=== PATIENT | female | born 1945 | race Caucasian/White ===

== ENCOUNTER → 2017-04-15 | Outpatient (CLI) | payer MEDICARE, OTHER ==
[~2017-04-15] VITALS: Ht 162.6 cm; Wt 83.0 kg
[~2017-04-15] MED LIST: B COTAB3 PO; BUSP5TA PO; CITA20TA4 PO; CO Q100C10 PO; LIDOCAINE 2% INJ 100 MG/5 ML SDV (FOR ANES.) As Ordered ONE; NS 1,000 ML IV ONE; OMEG100011 PO; PROPOFOL 200 MG/20 ML VIAL As Ordered ONE; VITA-121 PO
--- NOTE | 2017-04-15 08:28 | ROOR ---
Patient Name: Fabiana Melara Procedure Date: 04/15/2017 8:01 AM Date of : 1945 Age: 71 Room: [facility] Gender: Female Note Status: Finalized Procedure: Colonoscopy Indications: Screening for colorectal malignant neoplasm Providers: Sagar YOUNG MD Referring MD: HANY CARLOS NP Requesting Provider: Medicines: Monitored Anesthesia Care Complications: No immediate complications. Procedure: Pre-Anesthesia Assessment: - The heart rate, respiratory rate, oxygen saturations, blood pressure, adequacy of pulmonary ventilation, and response to care were monitored throughout the procedure. The Colonoscope was introduced through the anus and advanced to the cecum, identified by appendiceal orifice and ileocecal valve. The colonoscopy was performed without difficulty. The patient tolerated the procedure well. The quality of the bowel preparation was good. Findings: The perianal and digital rectal examinations were normal. A 4 mm polyp was found in the sigmoid colon. The polyp was sessile. The polyp was removed with a cold snare. Resection and retrieval were complete. Internal hemorrhoids were found during retroflexion. The hemorrhoids were medium-sized. The exam was otherwise without abnormality on direct and retroflexion views. A single small angioectasia without bleeding was found in the cecum. Impression: - One 4 mm polyp in the sigmoid colon, removed with a cold snare. Resected and retrieved. - Internal hemorrhoids. - The examination was otherwise normal on direct and retroflexion views. Recommendation: - Repeat colonoscopy in 5 years for surveillance. Sagar Young MD Sagar YOUNG MD 04/15/2017 8:28:37 AM This report has been signed electronically. Number of Addenda: 0 Note Initiated On: 04/15/2017 8:01 AM Estimated Blood Loss: Estimated blood loss: none.
[2017-04-15 08:59] VITALS: BP 120/76
== END | disposition home or self-care (01) ==
LOC: M OPP 07:28
PROVIDERS: ATTEND Internal Medicine Gastroenterology
DX: Z12.11 Encounter for screening for malignant neoplasm of colon (principal); D12.5 Benign neoplasm of sigmoid colon; K64.8 Other hemorrhoids; E78.5 Hyperlipidemia, unspecified; R12 Heartburn; M89.9 Disorder of bone, unspecified; F32.9 Major depressive disorder, single episode, unspecified; Z78.0 Asymptomatic menopausal state; Z87.442 Personal history of urinary calculi; R06.83 Snoring; Z87.891 Personal history of nicotine dependence; Z79.899 Other long term (current) drug therapy; Z80.3 Family history of malignant neoplasm of breast

== ENCOUNTER 2017-06-08 12:51 | Observation (INO) | payer MEDICARE, OTHER ==
[~2017-06-08] VITALS: Ht 162.6 cm; Wt 85.6 kg
[~2017-06-08 12:51] MED LIST changes: -B COTAB3 PO; -BUSP5TA PO; -CO Q100C10 PO; -LIDOCAINE 2% INJ 100 MG/5 ML SDV (FOR ANES.) As Ordered ONE; -NS 1,000 ML IV ONE; -OMEG100011 PO; -PROPOFOL 200 MG/20 ML VIAL As Ordered ONE; -VITA-121 PO
[2017-06-08] MEDS ORDERED: BUSP5TA PO (13:02)
[2017-06-08] MEDS ORDERED: ASPIRIN 81 MG CHEW TABLET PO ONE (13:45)
--- NOTE | 2017-06-08 13:45 | REP ---
Clinical: Left-sided chest pain . Comparison: 05/25/2013 . Technique: PA and lateral. Findings: The mediastinum and cardiac silhouette are normal. The lung russell are clear and without acute consolidation, effusion, or pneumothorax. The skeletal structures are intact and normal. Impression: 1. No acute cardiopulmonary process. Signed by Ricky Canales MD 06/08/2017 01:37 P
[2017-06-08 13:53] LABS: BASO % 0.5 % (0.0-1.0); EOS # 0.2 K/mm3 (0.0-0.50); EOS % 3.2 % (0.0-3.0); LARGE UNSTAINED CELL # 0.1 K/mm3 (0.0-0.4); LARGE UNSTAINED CELL % 1.2 % (0.0-4.0); LYMPH # 1.7 K/mm3 (1.5-4.5); LYMPH % 29.8 % (24.0-44.0); MEAN CORPUSCULAR HEMOGLOBIN 30.2 pg (27.0-33.0); MEAN CORPUSCULAR VOLUME 91.4 fl (80.0-96.0); MONO # 0.3 K/mm3 (0.0-0.8); MONO % 4.4 % (0.0-5.0); NEUTROPHILS # 3.5 K/mm3 (1.8-7.7); NEUTROPHILS % 60.9 % (36.0-66.0); PLATELET COUNT, AUTOMATED 217 k/mm3 (150-450); RED CELL DISTRIBUTION WIDTH 13.7 % (11.5-14.5); WHITE BLOOD COUNT 5.7 K/mm3 (4.0-10.0)
[2017-06-08 14:18] LABS: ALBUMIN 3.5 GM/DL (3.2-5.2); ALKALINE PHOSPHATASE 68 U/L (45-117); ALT/SGPT 27 U/L (12-78); ANION GAP 4 MEQ/L (8-16); AST/SGOT 16 U/L (15-37); BILIRUBIN,DIRECT < 0.1 MG/DL (0.0-0.2); BILIRUBIN,TOTAL 0.4 MG/DL (0.2-1.0); BLOOD UREA NITROGEN 12 MG/DL (7-18); CALCIUM LEVEL 8.9 MG/DL (8.8-10.2); CARBON DIOXIDE LEVEL 33 MEQ/L (21-32); CHLORIDE LEVEL 107 MEQ/L (98-107); CREATININE FOR GFR 0.87 MG/DL (0.55-1.02); FREE T4 0.84 NG/DL (0.76-1.46); GLOMERULAR FILTRATION RATE > 60.0 (>39); GLUCOSE, FASTING 93 MG/DL (83-110); POTASSIUM SERUM 4.2 MEQ/L (3.5-5.1); SODIUM LEVEL 144 MEQ/L (136-145); TOTAL PROTEIN 6.2 GM/DL (6.4-8.2)
[2017-06-08] MEDS ORDERED: ISOVUE-370 76% 100ML VIAL (Q9967) As Ordered ONE (14:49)
--- NOTE | 2017-06-08 15:39 | REP ---
Clinical: Chest pain . Technique: Axial contrast enhanced images from the thoracic inlet to the upper abdomen using 100 ml Isovue 370 intravenous contrast material with multiplanar re-formations. Findings: Satisfactory enhancement of the pulmonary vasculature is achieved and no filling defects are identified to suggest pulmonary embolus. Further evaluation of the mediastinum demonstrates normal thoracic aorta, heart and pericardium. The bilateral lung russell demonstrate chronic age-related interstitial changes without consolidation, pleural effusion or pneumothorax. Tracheobronchial tree is patent. No nodule or mass lesion is identified. No adenopathy noted. Surrounding musculoskeletal structures intact Impression: No evidence for pulmonary embolus. No acute mediastinal or pleural parenchymal process. Signed by Ricky Canales MD 06/08/2017 03:31 P
[2017-06-08] MEDS ORDERED: B COTAB3 PO (17:16)
[2017-06-08] MEDS ORDERED: CO Q100C10 PO (17:16)
[2017-06-08] MEDS ORDERED: OMEG100011 PO (17:16)
[2017-06-08] MEDS ORDERED: VITA-121 PO (17:16)
--- NOTE | 2017-06-08 17:35 | HPEPDOC ---
General Date of Admission Jun 08, 2017 at 16:56 Primary Care Physician: Jeni Carvalho Attending Physician: FLOR GIVENS MD Chief Complaint The patient is a 71-year-old female admitted with a reason for visit of Near Syncope. Source: Patient, RN notes reviewed, Old records Exam Limitations: No limitations Associated Symptoms: Weakness, Dizziness History of Present Illness Ms. Melara is a 71-year-old female who presents to [facility]'s Emergency Department with near-syncope. She is accompanied by her daughter and and later joined by her son and [id number]. Past medical history is significant for depression, allergies, chronic low back pain, history of hyperplastic polyp, and history of tubular adenoma. Patient reports that they have recently renovated their kitchen and have been entertaining company when on she became quite lightheaded. She states that this lasted for hours. She reports preparing breakfast for everyone, but not having any desire to consume anything to eat herself. However, she does report having an appetite for later meals. She admits to decreased energy. She reports feeling exhausted. She took an aspirin and one of her 's buspar. She felt better later in the day. On Saturday the patient continued to feel lightheaded and fatigued. She again took two more aspirin. On Saturday, day of presentation to the hospital, she reports worsening lightheadedness and left shoulder blade pressure. She describes the pressure as light. No recalled incident to explain shoulder blade pain, per patient. Patient reports having a prior EKGs done in her PCP office without receiving a reported abnormality. She has also had a nuclear stress test done several years ago, but does not recall any abnormalities reported at that time. The only medication she takes is citalopram, which she reports that she does not take consistently. Denies a history of hypertension, cardiac surgery, COPD, heart failure. Denies chest pressure, chest pain, radiating left arm pain, jaw pain, searing pain on her face or jaw line, vision changes (blurry vision, loss of vision, diplopia), loss of hearing, tinnitus, diaphoresis, dysphagia, nausea, vomiting, abdominal pain, back pain. She denies falling. Hospitalist service was consulted and patient was admitted for observation. Home Medications Scheduled (B Complex) 1 Tab Tab, 1 TAB PO DAILY, (Reported) (Co Q 10) 100 Mg Cap, 100 MG PO DAILY, (Reported) Cholecalciferol (Vitamin D-3) 1,000 Unit Tab, 1,000 UNIT PO DAILY, (Reported) Citalopram Hydrobromide (Citalopram Hydrobromide) 20 Mg Tab, 20 MG PO DAILY, ( Reported) [place] 3 Polyunsat Fatty Acids ([place] 3 1000 mg) 1 Cap Cap, 1 CAP PO DAILY, ( Reported) Scheduled PRN Buspirone HCl (Buspirone HCl) 5 Mg Tab, 0 PO PRN PRN for ANXIETY/AGITATION, ( Reported) Allergies Coded Allergies: Cat Dander (Verified Allergy, Unknown, 04/10/17) Past Medical History Medical History 1. Depression 2. Allergies 3. Chronic low back pain 4. History of hyperplastic polyp 5. History of tubular adenoma Surgical History 1. Colonoscopy 2. 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 Occasional glass of wine Denies tobacco Denies illicit drug use Admits to travel history, domestic and international Denies exposures No pets in the home Review of Symptoms Constitutional: Reports: Fatigue, Denies: Chills, Fever, Night Sweats, Weight Loss Eyes: Denies: Pain, Vision change, Conjunctivae inflammation, Eyelid inflammation, Redness ENT: Denies: Head Aches, Ear Pain, Dysphagia, Sinus Congestion, Post Nasal Drip , Sore Throat, Epistaxis Skin: Denies: Rash, Lesions, Bruising Pulmonary: Denies: Dyspnea, Cough, Pleuritic Chest Pain Cardiovascular: Reports: Lt Headedness, Denies: Chest Pain, Palpitations, Orthopnea, Paroxysmal Noc. Dyspnea, Edema Gastrointestinal: Denies: Nausea, Vomiting, Abdominal Pain, Diarrhea, Constipation, Melena, Hematochezia Genitourinary: Denies: Dysuria, Frequency, Incontinence, Hematuria Hematologic: Denies: Bruising, Bleeding Excessively, Petecchia, Purpura Endocrine: Denies: Polydipsia, Polyphagia, Polyuria Musculoskeletal: Reports: Shoulder Pain (left scapula), Denies: Neck Pain, Back Pain, Joint Pain, Muscle Pain Neurological: Reports: Weakness, Denies: Numbness Physical Examination General Exam: Positive: Alert, Cooperative, No Acute Distress Eye Exam: Positive: PERRLA, Conjunctiva & lids normal, EOMI, Negative: Sclera icteric, Ptosis ENT Exam: Positive: Atraumatic, Mucous membr. moist/pink, Pharynx Normal, Tongue Midline, Nares Patent, Negative: Pharyngeal Edema Neck Exam: Positive: Supple, +2 carotid pulse wo bruit, Negative: JVD, thyromegaly, Lymphadenopathy Chest Exam: Positive: Clear to auscultation, Normal air movement, Negative: Rales, Rhonchi, Wheezing Heart Exam: Positive: Rate Normal, Regular Rhythm, Normal S1, Normal S2, Negative: Gallops, Murmurs, Rubs Telemetry: Positive: Sinus Abdomen Exam: Positive: Normal bowel sounds, Soft, Negative: Tenderness, Hepatospenomegaly, Mass, Hernia Extremity Exam: Positive: Normal pulses, Negative: Clubbing, Cyanosis, Edema, Tenderness, Swelling Skin Exam: Negative: Rash, Lesion Neuro Exam: Positive: Normal Speech, Strength at 5/5 X4 ext, Cranial Nerves 3- 12 NL Other physical findings Chest x-ray, PA and lateral IMPRESSION: 1. No acute cardiopulmonary process. CT angiography IMPRESSION: No evidence for pulmonary embolus. No acute mediastinal or pleural parenchymal process. Vital Signs Vital Signs Date Time Temp Pulse Resp B/P (MAP) Pulse Ox O2 Delivery O2 Flow Rate FiO2 06/08/17 15:15 60 17 125/62 (83) 94 Room Air 06/08/17 12:52 98.5 Height (in): 64 Weight (kg): 83.64 BMI (kg): 31.7 Laboratory Data Labs 24H Laboratory Tests 2 06/08/17 13:41: White Blood Count 5.7, Red Blood Count 5.24, Hemoglobin 15.8, Hematocrit 47.9H, Mean Corpuscular Volume 91.4, Mean Corpuscular Hemoglobin 30.2, Mean Corpuscular Hemoglobin Concent 33.0, Red Cell Distribution Width 13.7, Platelet Count 217, Neutrophils (%) (Auto) 60.9, Lymphocytes (%) (Auto) 29.8, Monocytes ( %) (Auto) 4.4, Eosinophils (%) (Auto) 3.2H, Basophils (%) (Auto) 0.5, Neutrophils # (Auto) 3.5, Lymphocytes # (Auto) 1.7, Monocytes # (Auto) 0.3, Eosinophils # (Auto) 0.2, Basophils # (Auto) 0.0, Large Unclassified Cells % 1.2 , Large Unclassified Cells # 0.1, Anion Gap 4L, Glomerular Filtration Rate > 60.0, Calcium Level 8.9, Aspartate Amino Transf (AST/SGOT) 16, Alanine Aminotransferase (ALT/SGPT) 27, Alkaline Phosphatase 68, Total Bilirubin 0.4, Direct Bilirubin < 0.1, Total Creatine Kinase 72, Creatine Kinase MB 1.2, Creatine Kinase MB Relative Index 1.66, Troponin I < 0.02, B-Type Natriuretic Peptide 120H, Total Protein 6.2L, Albumin 3.5, Albumin/Globulin Ratio 1.30, Thyroid Stimulating Hormone (TSH) 3.090, Free Thyroxine 0.84 CBC/BMP Laboratory Tests 06/08/17 13:41 Red Blood Count 5.24, Mean Corpuscular Volume 91.4, Mean Corpuscular Hemoglobin 30.2, Mean Corpuscular Hemoglobin Concent 33.0, Red Cell Distribution Width 13.7 , Neutrophils (%) (Auto) 60.9, Lymphocytes (%) (Auto) 29.8, Monocytes (%) (Auto ) 4.4, Eosinophils (%) (Auto) 3.2 H, Basophils (%) (Auto) 0.5, Neutrophils # ( Auto) 3.5, Lymphocytes # (Auto) 1.7, Monocytes # (Auto) 0.3, Eosinophils # (Auto ) 0.2, Basophils # (Auto) 0.0 RAD Interpretation STUDY: CXR Rad Actions: Report Reviewed RAD Interpretation: Normal Assessment/Plan This is a 71-year-old female with a past medical history significant for depression, allergies, chronic low back pain, history of hyperplastic polyp , and history of tubular adenoma who presents with near-syncope, likely over- exertional. R/O cardiac etiology. Risk stratification is low. Plan / VTE VTE Prophylaxis Ordered?: Yes (TEDs, sequentials, knee high compression, heparin 5,000 units SC every 8 hours) Plan Plan Near-syncope R/O cardiac etiology. More likely over-exertional based on HPI. Admit to the PCU for telemetry monitoring. Obtain orthostatic VS. Trend cardiac markers. Stratify risk with lipid panel. Obtain hemoglobin A1c. Aspirin given in the emergency department. Obtain carotid U/S. Depression Continue patient on home medication of citalopram. Disposition Admit: Progressive care unit Anticipated hospitalization: Observation Attending: Dr. Gregory Diet: Continue Current (regular) Activity: Encourage Ambulation Diagnostics: Check Labs, Repeat Labs in AM Anticipated Discharge: Home EDSON FERMIN Jun 08, 2017 17:35
[2017-06-08 17:43] LABS: CHOLESTEROL LEVEL 238 MG/DL (<200); MAGNESIUM LEVEL 2.2 MG/DL (1.8-2.4); TRIGLYCERIDES LEVEL 108 MG/DL (<150)
[2017-06-08] MEDS ORDERED: busPIRone 5 MG TAB PO PRN (17:45)
[2017-06-08 18:47] VITALS: BP 156/67
[2017-06-08 20:00] VITALS: BP_SYST 128; BP_SYST 133; BP_SYST 137; BP_DIAS 72; BP_DIAS 75; BP_DIAS 77
[2017-06-08] MEDS: HEPARIN SOD (PORCINE) 5000 UNITS/ML VIAL SC SCH (22:21)
[2017-06-08 23:59] VITALS: BP_SYST 100; BP_SYST 120; BP_SYST 147; BP_DIAS 55; BP_DIAS 73; BP_DIAS 80
[2017-06-09 04:00] VITALS: BP 101/63
[2017-06-09] MEDS: HEPARIN SOD (PORCINE) 5000 UNITS/ML VIAL SC SCH (06:00)
[2017-06-09 06:18] LABS: BASO % 0.4 % (0.0-1.0); EOS # 0.2 K/mm3 (0.0-0.50); EOS % 3.9 % (0.0-3.0); LARGE UNSTAINED CELL # 0.1 K/mm3 (0.0-0.4); LARGE UNSTAINED CELL % 1.9 % (0.0-4.0); LYMPH # 2.4 K/mm3 (1.5-4.5); LYMPH % 38.1 % (24.0-44.0); MEAN CORPUSCULAR HEMOGLOBIN 30.3 pg (27.0-33.0); MEAN CORPUSCULAR HGB CONC 33.8 g/dl (32.0-36.5); MEAN CORPUSCULAR VOLUME 89.6 fl (80.0-96.0); MONO # 0.4 K/mm3 (0.0-0.8); MONO % 6.5 % (0.0-5.0); NEUTROPHILS # 3.2 K/mm3 (1.8-7.7); NEUTROPHILS % 49.2 % (36.0-66.0); PLATELET COUNT, AUTOMATED 197 k/mm3 (150-450); RED CELL DISTRIBUTION WIDTH 13.6 % (11.5-14.5); WHITE BLOOD COUNT 6.4 K/mm3 (4.0-10.0)
[2017-06-09 06:35] LABS: ANION GAP 7 MEQ/L (8-16); BLOOD UREA NITROGEN 12 MG/DL (7-18); CALCIUM LEVEL 8.6 MG/DL (8.8-10.2); CARBON DIOXIDE LEVEL 29 MEQ/L (21-32); CHLORIDE LEVEL 109 MEQ/L (98-107); CREATININE FOR GFR 0.84 MG/DL (0.55-1.02); GLOMERULAR FILTRATION RATE > 60.0 (>39); GLUCOSE, FASTING 82 MG/DL (83-110); POTASSIUM SERUM 3.9 MEQ/L (3.5-5.1); SODIUM LEVEL 145 MEQ/L (136-145)
--- NOTE | 2017-06-09 07:32 | ECGEPIP ---
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
--- NOTE | 2017-06-09 07:57 | REP ---
Clinical: Near-syncopal episode . Technique: Dick scale and color Doppler evaluation using linear high frequency transducer Findings: Two-dimensional dick scale and color images demonstrate smooth intimal thickening along the common carotid arteries extending to the carotid bulbs with normal arterial lumen, laminar flow and no appreciable narrowing. Color Doppler interrogation demonstrates normal arterial wave patterns and velocities with no significant spectral broadening. Normal flow direction is appreciated in the bilateral vertebral arteries. RIGHT (cm/s) LEFT (cm/s) ICA peak systolic velocity 131.4 75.7 ICA diastolic velocity 71.6 25.8 ECA peak systolic velocity 70.5 60.9 CCA peak systolic velocity 67.3 75.0 ICA/CCA ratio 1.95 1.01 Impression: 1. Based on set standards narrowing falls within the 50-69% range through the proximal to mid right internal carotid artery although based on visual inspection only minimal narrowing is appreciated which may at best be approaching 50%. 2. Left carotid artery velocities and findings fall within the normal / less than 50% range Signed by Ricky Canales MD 06/09/2017 07:48 A
[2017-06-09 08:00] VITALS: BP 119/70
[2017-06-09] MEDS: CitaloPRAM (CeleXA) 20 MG TAB PO SCH (08:29)
[2017-06-09] MEDS: VITAMIN D 1,000 INTERNATIONAL UNITS TABLET PO SCH (08:30)
[2017-06-09] MEDS: ASPIRIN 81 MG ENTERIC TAB PO SCH (08:30)
[2017-06-09] MEDS: OMEGA-3 1050MG CAPSULE PO SCH (08:30)
[2017-06-09 12:00] VITALS: BP 124/60
--- NOTE | 2017-06-09 12:49 | IPNPDOC ---
Text Note Date of Service The patient was seen on 06/09/17. NOTE Subjective: Patient seen and examined at bedside. No further episodes of chest pain. Denies any other medical complaints Objective: General: NAD, lying comfortably in bed HEENT: NC/AT, EOMI, PERRL Lungs: CTA B/L Heart: +S1S2, RRR Abd: soft, obese, NT, +BS Ext: trace peripheral edema Psych: AAOx3 Assessment/Plan: 71-year old female PMHx depression, allergies, chronic low back pain, history of hyperplastic polyp, and history of tubular adenoma who presents with near- syncope, likely over-exertional. 1. Chest pain - telemetry monitoring - ACS ruled out - bradycardia noted on telemetry - continue monitoring 2. Depression - continue home regimen - citalopram 3. DVT prophylaxis - Lovenox Dispo: further 24 hours telemetry monitoring, anticipate d/c in 24 hours VS,Fishbone, I+O VS, Fishbone, I+O Laboratory Tests 06/08/17 13:41 Red Blood Count 5.24, Mean Corpuscular Volume 91.4, Mean Corpuscular Hemoglobin 30.2, Mean Corpuscular Hemoglobin Concent 33.0, Red Cell Distribution Width 13.7 , Neutrophils (%) (Auto) 60.9, Lymphocytes (%) (Auto) 29.8, Monocytes (%) (Auto ) 4.4, Eosinophils (%) (Auto) 3.2 H, Basophils (%) (Auto) 0.5, Neutrophils # ( Auto) 3.5, Lymphocytes # (Auto) 1.7, Monocytes # (Auto) 0.3, Eosinophils # (Auto ) 0.2, Basophils # (Auto) 0.0 06/09/17 05:48 Red Blood Count 4.76, Mean Corpuscular Volume 89.6, Mean Corpuscular Hemoglobin 30.3, Mean Corpuscular Hemoglobin Concent 33.8, Red Cell Distribution Width 13.6 , Neutrophils (%) (Auto) 49.2, Lymphocytes (%) (Auto) 38.1, Monocytes (%) (Auto ) 6.5 H, Eosinophils (%) (Auto) 3.9 H, Basophils (%) (Auto) 0.4, Neutrophils # ( Auto) 3.2, Lymphocytes # (Auto) 2.4, Monocytes # (Auto) 0.4, Eosinophils # (Auto ) 0.2, Basophils # (Auto) 0.0, Calcium Level 8.6 L, Total Creatine Kinase 51 Vital Signs Date Time Temp Pulse Resp B/P (MAP) Pulse Ox O2 Delivery O2 Flow Rate FiO2 06/09/17 08:00 98.5 54 18 119/70 (86) 97 Room Air I&O- Last 24 Hours up to 6 AM 06/09/17 06:00 Intake Total 420 ml Output Total 200 ml Balance 220 ml JAMES MCHUGH MD Jun 09, 2017 12:49
[2017-06-09] MEDS ORDERED: ENOXAPARIN 40 MG/0.4 ML SYRINGE (J1650) SC ONE (13:30)
[2017-06-09 16:00] VITALS: BP 125/59
[2017-06-09] MEDS ORDERED: ENOXAPARIN 40 MG/0.4 ML SYRINGE (J1650) SC SCH (18:00)
[2017-06-09 19:55] VITALS: BP 125/74
[2017-06-09] MEDS ORDERED: DOCUSATE SODIUM 100 MG CAP PO PRN (21:00)
--- NOTE | 2017-06-09 21:55 | ECGEPIP ---
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
[2017-06-09 23:28] VITALS: BP 118/63
[2017-06-10 05:04] VITALS: BP 119/56
[2017-06-10 05:43] LABS: BASO % 0.6 % (0.0-1.0); EOS # 0.2 K/mm3 (0.0-0.50); LARGE UNSTAINED CELL # 0.1 K/mm3 (0.0-0.4); LARGE UNSTAINED CELL % 2.1 % (0.0-4.0); LYMPH # 2.6 K/mm3 (1.5-4.5); LYMPH % 44.7 % (24.0-44.0); MEAN CORPUSCULAR HEMOGLOBIN 30.2 pg (27.0-33.0); MEAN CORPUSCULAR HGB CONC 33.2 g/dl (32.0-36.5); MEAN CORPUSCULAR VOLUME 91.1 fl (80.0-96.0); MONO # 0.4 K/mm3 (0.0-0.8); MONO % 6.6 % (0.0-5.0); NEUTROPHILS # 2.5 K/mm3 (1.8-7.7); NEUTROPHILS % 42.1 % (36.0-66.0); PLATELET COUNT, AUTOMATED 198 k/mm3 (150-450); RED CELL DISTRIBUTION WIDTH 13.7 % (11.5-14.5); WHITE BLOOD COUNT 5.9 K/mm3 (4.0-10.0)
[2017-06-10 06:01] LABS: CALCIUM LEVEL 8.3 MG/DL (8.8-10.2); CREATININE FOR GFR 0.99 MG/DL (0.55-1.02); GLOMERULAR FILTRATION RATE 58.9 (>39); POTASSIUM SERUM 3.9 MEQ/L (3.5-5.1)
[2017-06-10 08:00] VITALS: BP 120/58
[2017-06-10] MEDS: ASPIRIN 81 MG ENTERIC TAB PO SCH ×2 (09:00→09:06)
[2017-06-10] MEDS: OMEGA-3 1050MG CAPSULE PO SCH ×2 (09:00→09:06)
[2017-06-10] MEDS: VITAMIN D 1,000 INTERNATIONAL UNITS TABLET PO SCH ×2 (09:00→09:06)
[2017-06-10] MEDS: CitaloPRAM (CeleXA) 20 MG TAB PO SCH ×2 (09:00→09:06)
[2017-06-10] MEDS: ENOXAPARIN 40 MG/0.4 ML SYRINGE (J1650) SC SCH ×2 (09:00→09:07)
--- NOTE | 2017-06-10 10:33 | DS.PDOC ---
Discharge Summary General Date of Admission Jun 08, 2017 at 16:56 Date of Discharge 06/10/17 Discharge Summary PROCEDURES PERFORMED DURING STAY: [None]. DISCHARGE DIAGNOSES: 1. Ruled out ACS. 2. Asymptomatic bradycardia. COMPLICATIONS/CHIEF COMPLAINT: Near Syncope. HISTORY OF PRESENT ILLNESS: Ms. Melara is a 71-year-old female who presented to [facility] ED with near- syncope. Past medical history is significant for depression, allergies, chronic low back pain, history of hyperplastic polyp, and history of tubular adenoma. Patient reported that they have recently renovated their kitchen and have been entertaining company when on she became quite lightheaded. She stated that this lasted for hours. She reported decreased PO intake, fatigue and lethargy. These symptoms appeared to be secondary to her busy schedule, as she denied any loss of appetite. She took an aspirin and one of her 's buspar. She felt better later in the day. On Saturday the patient continued to feel lightheaded and fatigued. She again took two more aspirin. On Saturday, day of presentation to the hospital, she reported worsening lightheadedness and left shoulder blade pressure. Patient reported having a prior EKGs done in her PCP office without receiving a reported abnormality. She has also had a nuclear stress test done several years ago, but does not recall any abnormalities reported at that time. The only medication she takes is citalopram, which she reports that she does not take consistently. Denies a history of hypertension, cardiac surgery, COPD, heart failure. Denied chest pressure, chest pain, radiating left arm pain, jaw pain, searing pain on her face or jaw line, vision changes (blurry vision, loss of vision, diplopia), loss of hearing, tinnitus, diaphoresis, dysphagia, nausea, vomiting, abdominal pain, back pain. She denied falling. HOSPITAL COURSE: Patient admitted to PCU for telemetry monitoring. ACS was ruled out. Her symptoms essentially resolved. She was found to be orthostatic, but asymptomatic. Similarly found to be bradycardic, but asymptomatic. No events noted on telemetry, and repeat ECG showed no significant changes. Patient discharged home in stable condition with outpatient follow up. DISCHARGE MEDICATIONS: Please see below. ALLERGIES: Please see below. PHYSICAL EXAMINATION ON DISCHARGE: VITAL SIGNS: Please see below. GENERAL: NAD HEENT: NC/AT, EOMI, PERRL NECK: supple CARDIOVASCULAR EXAMINATION: +S1S2, RRR RESPIRATORY EXAMINATION: CTA B/L ABDOMINAL EXAMINATION: soft, obese, NT, +BS EXTREMITIES: no edema NEUROLOGICAL EXAMINATION: no gross focal deficits PSYCHIATRIC EXAMINATION: AAOx3 LABORATORY DATA: Please see below. IMAGING: CT angiogram: no PE, no acute mediastinal or pleural parenchymal process. ACTIVITY: [As tolerated]. DIET: Regular DISCHARGE PLAN: DC home DISCHARGE INSTRUCTIONS: 1. Follow up with PCP in 3-5 days. DISCHARGE CONDITION: [Stable]. TIME SPENT ON DISCHARGE: Greater than 30 minutes. Vital Signs/I&Os Vital Signs Date Time Temp Pulse Resp B/P (MAP) Pulse Ox O2 Delivery O2 Flow Rate FiO2 06/10/17 08:00 98.4 54 18 120/58 (78) 98 Room Air I&O- Last 24 Hours up to 6 AM 06/10/17 06:00 Intake Total 1140 ml Output Total 1100 ml Balance 40 ml Laboratory Data Labs 24H Laboratory Tests 2 06/09/17 13:36: Total Creatine Kinase 62, Creatine Kinase MB 1.0, Creatine Kinase MB Relative Index 1.61, Troponin I < 0.02 06/10/17 05:03: White Blood Count 5.9, Red Blood Count 4.66, Hemoglobin 14.1, Hematocrit 42.4, Mean Corpuscular Volume 91.1, Mean Corpuscular Hemoglobin 30.2, Mean Corpuscular Hemoglobin Concent 33.2, Red Cell Distribution Width 13.7, Platelet Count 198, Neutrophils (%) (Auto) 42.1, Lymphocytes (%) (Auto) 44.7H, Monocytes (%) (Auto) 6.6H, Eosinophils (%) (Auto) 4.0H, Basophils (%) (Auto) 0.6, Neutrophils # (Auto) 2.5, Lymphocytes # (Auto) 2.6, Monocytes # (Auto) 0.4, Eosinophils # (Auto) 0.2, Basophils # (Auto) 0.0, Large Unclassified Cells % 2.1 , Large Unclassified Cells # 0.1, Anion Gap 6L, Glomerular Filtration Rate 58.9 , Blood Urea Nitrogen 13, Creatinine 0.99, Sodium Level 145, Potassium Level 3.9 , Chloride Level 108H, Carbon Dioxide Level 31, Calcium Level 8.3L CBC/BMP Laboratory Tests 06/10/17 05:03 Red Blood Count 4.66, Mean Corpuscular Volume 91.1, Mean Corpuscular Hemoglobin 30.2, Mean Corpuscular Hemoglobin Concent 33.2, Red Cell Distribution Width 13.7 , Neutrophils (%) (Auto) 42.1, Lymphocytes (%) (Auto) 44.7 H, Monocytes (%) ( Auto) 6.6 H, Eosinophils (%) (Auto) 4.0 H, Basophils (%) (Auto) 0.6, Neutrophils # (Auto) 2.5, Lymphocytes # (Auto) 2.6, Monocytes # (Auto) 0.4, Eosinophils # (Auto) 0.2, Basophils # (Auto) 0.0, Calcium Level 8.3 L Discharge Medications Scheduled (B Complex) 1 Tab Tab, 1 TAB PO DAILY, (Reported) (Co Q 10) 100 Mg Cap, 100 MG PO DAILY, (Reported) Cholecalciferol (Vitamin D-3) 1,000 Unit Tab, 1,000 UNIT PO DAILY, (Reported) Citalopram Hydrobromide (Citalopram Hydrobromide) 20 Mg Tab, 20 MG PO DAILY, ( Reported) [place] 3 Polyunsat Fatty Acids ([place] 3 1000 mg) 1 Cap Cap, 1 CAP PO DAILY, ( Reported) Scheduled PRN Buspirone HCl (Buspirone HCl) 5 Mg Tab, 0 PO PRN PRN for ANXIETY/AGITATION, ( Reported) Allergies Coded Allergies: Cat Dander (Verified Allergy, Unknown, 04/10/17) JAMES MCHUGH MD Jun 10, 2017 10:33
== END 2017-06-10 10:55 | disposition home or self-care (01) ==
LOC: M ED 12:51 → M ED INP 16:56 → M PCU 18:30
PROVIDERS: ADMIT Internal Medicine; ATTEND Internal Medicine
DX: R00.1 Bradycardia, unspecified (principal); R07.9 Chest pain, unspecified; F32.9 Major depressive disorder, single episode, unspecified; M54.5 Low back pain; G89.29 Other chronic pain; J30.81 Allergic rhinitis due to animal (cat) (dog) hair and dander; Z79.899 Other long term (current) drug therapy
CPT/HCPCS: 36415; 71020; 71275; 80048; 80061; 80076; 82550; 82553; 83036; 83735; 83880; 84439; 84443; 84484; 85025; 93005; 93041; 93880; 94760; 96372; 99285; G0378; J1650; Q9967

== ENCOUNTER → 2018-04-15 | Outpatient (CLI) | payer MEDICARE, OTHER | LOC: M RAD 10:03 | DX: Z12.31 Encounter for screening mammogram for malignant neoplasm of breast (principal) | CPT/HCPCS: 77067 ==

== ENCOUNTER → 2019-03-11 | Outpatient (CLI) | payer MEDICARE, OTHER ==
[~2019-03-11] MED LIST changes: +B COTAB3 PO; +BUSP5TA PO; -CITA20TA4 PO; +CITA20TA6 PO; +CO Q100C10 PO; +OMEG100011 PO; +VITA-121 PO
--- NOTE | 2019-03-11 16:45 | REP ---
RIGHT WRIST, FIVE VIEWS: There is no evidence of an acute fracture, dislocation or intrinsic bone disease. IMPRESSION: No fracture or dislocation. Electronically Signed by Arnold Dick MD 03/12/2019 04:21 P
--- NOTE | 2019-03-11 16:46 | REP ---
RIGHT HAND, FOUR VIEWS: There is no evidence of an acute fracture, dislocation or intrinsic bone disease. IMPRESSION: No fracture or dislocation. Electronically Signed by Arnold Dick MD 03/12/2019 04:21 P
== END ==
LOC: M LRY 15:30
PROVIDERS: ATTEND Nurse Practitioner Family
DX: S69.91XA Unspecified injury of right wrist, hand and finger(s), initial encounter (principal); W19.XXXA Unspecified fall, initial encounter; Y92.9 Unspecified place or not applicable
CPT/HCPCS: 73110; 73130; G0463

== ENCOUNTER → 2019-04-27 | Outpatient (CLI) | payer MEDICARE, OTHER ==
--- NOTE | 2019-04-27 11:31 | REP ---
BILATERAL SCREENING DIGITAL MAMMOGRAM WITH 3D TOMOSYNTHESIS: There are no palpable abnormalities or other breast complaints. The the patient states she had a clinical breast examination March/2019. The Tyrer-Cuzick Score is: 7.5%. . Comparison is 08/03/2014. There are scattered areas of fibroglandular density. There is no dominant mass, micro calcific cluster or architectural distortion that would indicate malignancy. There are benign calcifications. There are no additional findings on 3D tomosynthesiss. There is no change from the prior study. Impression: BIRADS/ACR category 2 mammogram. Benign findings. Recommendation: Routine annual screening mammography. This mammogram was interpreted with the aid of a FDA approved computer-aided detection system. A. Negative mammogram reports should not delay biopsy if a dominant or clinically suspicious mass is present. B. Not all breast cancers are identified by mammography or tomosynthesis. C. Adenosis and dense breasts may obscure an underlying neoplasm. Patient letter M1. Electronically Signed by Arnold Lew MD 04/27/2019 11:21 A
== END ==
LOC: M RAD 09:08
PROVIDERS: ATTEND Nurse Practitioner Family
DX: Z12.31 Encounter for screening mammogram for malignant neoplasm of breast (principal)

== ENCOUNTER 2019-07-23 12:10 | Emergency (ER) | payer MEDICARE, OTHER ==
[~2019-07-23] VITALS: Ht 162.6 cm; Wt 79.9 kg
[2019-07-23] MEDS ORDERED: MECLIZINE 25 MG TABLET PO ONE (13:00)
--- NOTE | 2019-07-23 13:26 | REP ---
CT brain: 07/23/2019. Indication: Dizziness. Comparison: None. Technique: Unenhanced axial CT images of the brain were obtained from skull base to vertex. Findings: There is no acute intracranial hemorrhage, acute cortical infarction, mass effect, hydrocephalus or significant fluid within the visualized paranasal sinuses/mastoid air cells. Mild diffuse volume loss is present. There are a few small patchy areas of white matter hypoattenuation within the cerebral hemispheres most consistent with chronic small vessel disease. Impression: No acute intracranial process. Electronically Signed by Marco A Arreola DO 07/23/2019 01:18 P
[2019-07-23 13:34] LABS: BASO # 0.1 10^3/uL (0.0-0.2); BASO % 0.7 % (0.0-1.0); EOS # 0.2 10^3/uL (0.0-0.5); EOS % 2.3 % (0.0-3.0); HEMATOCRIT 44.9 % (36.0-47.0); HEMOGLOBIN 14.6 g/dl (12.0-15.5); LYMPH # 2.7 10^3/uL (1.5-5.0); LYMPH % 38.6 % (24.0-44.0); MEAN CORPUSCULAR HEMOGLOBIN 29.5 pg (27.0-33.0); MEAN CORPUSCULAR HGB CONC 32.5 g/dl (32.0-36.5); MEAN CORPUSCULAR VOLUME 90.7 fl (80.0-96.0); MONO # 0.5 10^3/uL (0.0-0.8); MONO % 6.8 % (0.0-5.0); NEUTROPHILS # 3.6 10^3/uL (1.5-8.5); NEUTROPHILS % 51.5 % (36.0-66.0); PLATELET COUNT, AUTOMATED 216 10^3/uL (150-450); RED BLOOD COUNT 4.95 10^6/uL (4.00-5.40); WHITE BLOOD COUNT 6.9 10^3/uL (4.0-10.0)
[2019-07-23 13:58] LABS: GLOMERULAR FILTRATION RATE 57.9 (>39); MAGNESIUM LEVEL 2.4 MG/DL (1.8-2.4); POTASSIUM SERUM 4.5 MEQ/L (3.5-5.1); THYROID STIMULATING HORMONE 3.17 uIU/ML (0.358-3.740)
--- NOTE | 2019-07-23 14:32 | ECGEPIP ---
[facility] - ED Test Date: 2019-07-23 Pat Name: SHERIN LYLES Department: Room: - Gender: Female [employer] Examiner: KAI : 1945 Requested By: RAJESH MCGRATH Order Number: [id number] Reading MD: Maria Del Carmen Santamaria Measurements Intervals [place] Rate: 47 P: 59 MI: 163 QRS: 7 QRSD: 78 T: 66 QT: 454 QTc: 402 Interpretive Statements SINUS BRADYCARDIA LOW QRS VOLTAGE IN PRECORDIAL LEADS ST DEVIATION AND MODERATE T-WAVE ABNORMALITY, CONSIDER ANTERIOR ISCHEMIA DECREASED RATE 06/09/17 Electronically Signed on 07-23-2019 14:32:42 EDT by Maria Del Carmen Santamaria
--- NOTE | 2019-07-23 20:11 | REPVR ---
PROCEDURE INFORMATION: Exam: MR Head Without Contrast Exam date and time: 07/23/2019 8:00 PM Clinical history: 73 years old, female; Dizziness TECHNIQUE: Imaging protocol: MR of the head without contrast. COMPARISON: CT Head without contrast 07/23/2019 12:57 PM FINDINGS: Brain: No acute infarct. Mild chronic microvascular ischemic changes. Ventricles: Normal. No ventriculomegaly. Bones/joints: Unremarkable. Soft tissues: Unremarkable. Sinuses: Normal as visualized. No acute sinusitis. Mastoid air cells: Normal as visualized. No mastoid effusion. Orbits: Unremarkable. IMPRESSION: No acute intracranial abnormality. Electronically signed by: Lenard Carbajal On 07/23/2019 20:11:48 PM
--- NOTE | 2019-07-23 20:17 | REPVR ---
PROCEDURE INFORMATION: Exam: MR Angiogram Head Without Contrast, Arteries Exam date and time: 07/23/2019 8:00 PM Clinical history: 73 years old, female; Dizziness and giddiness TECHNIQUE: Imaging protocol: MR angiogram head without contrast. Exam focused on the arteries. 3D rendering: MIP reconstructed images were created and reviewed. COMPARISON: CT Head without contrast 07/23/2019 12:57 PM FINDINGS: Right internal carotid artery: Unremarkable. Intracranial segment is patent with no significant stenosis. No aneurysm. Right anterior cerebral artery: Unremarkable. No occlusion or significant stenosis. No aneurysm. Right middle cerebral artery: Unremarkable. No occlusion or significant stenosis. No aneurysm. Right posterior cerebral artery: Unremarkable. No occlusion or significant stenosis. No aneurysm. Right vertebral artery: Unremarkable. No occlusion or significant stenosis. No aneurysm. Left internal carotid artery: Unremarkable. Intracranial segment is patent with no significant stenosis. No aneurysm. Left anterior cerebral artery: Unremarkable. No occlusion or significant stenosis. No aneurysm. Left middle cerebral artery: Unremarkable. No occlusion or significant stenosis. No aneurysm. Left posterior cerebral artery: Unremarkable. No occlusion or significant stenosis. No aneurysm. Left vertebral artery: Unremarkable. No occlusion or significant stenosis. No aneurysm. Basilar artery: Unremarkable. No occlusion or significant stenosis. No aneurysm. IMPRESSION: No acute abnormality Electronically signed by: Lenard Carbajal On 07/23/2019 20:17:04 PM
[2019-07-23] MEDS ORDERED: FLON1SPR NARES (20:31)
[2019-07-23] MEDS ORDERED: MECL-68 PO (20:31)
[2019-07-23 20:42] VITALS: BP 133/72
== END 2019-07-23 20:42 | disposition home or self-care (01) ==
LOC: M ED 12:10
DX: R42 Dizziness and giddiness (principal); F41.9 Anxiety disorder, unspecified; J30.81 Allergic rhinitis due to animal (cat) (dog) hair and dander; Z79.899 Other long term (current) drug therapy
CPT/HCPCS: 36415; 70450; 70544; 70551; 80048; 81002; 83735; 84443; 85025; 93005; 99285; G0463

== ENCOUNTER 2019-09-15 07:18 | Day surgery (SDC) | payer MEDICARE, OTHER ==
[~2019-09-15] VITALS: Ht 162.6 cm; Wt 78.9 kg
[~2019-09-15 07:18] MED LIST changes: +FISH1000 PO; +FLON1SPR NARES; +LIDOCAINE 1% MDV 20ML VIAL SQ PRN; +LR 1,000 ML IV ONE; +MECL-68 PO; +PROPOFOL 200 MG/20 ML VIAL As Ordered ONE; +VITATAB73 PO
[2019-09-15 07:58] LABS: HEMATOCRIT 47.5 % (36.0-47.0); HEMOGLOBIN 14.7 g/dl (12.0-15.5); MEAN CORPUSCULAR HEMOGLOBIN 28.7 pg (27.0-33.0); MEAN CORPUSCULAR HGB CONC 30.9 g/dl (32.0-36.5); MEAN CORPUSCULAR VOLUME 92.8 fl (80.0-96.0); PLATELET COUNT, AUTOMATED 243 10^3/uL (150-450); RED BLOOD COUNT 5.12 10^6/uL (4.00-5.40)
[2019-09-15] MEDS ORDERED: LIDOCAINE 2% INJ 100 MG/5 ML SDV (FOR ANES.) As Ordered ONE (08:39)
[2019-09-15] MEDS ORDERED: dexameTHASONE 4 MG/ML 1ML VIAL (J1100) As Ordered ONE (08:40)
[2019-09-15] MEDS ORDERED: fentaNYL 100 MCG/2 ML INJECTION (J3010) As Ordered ONE ×2 (08:40→11:52)
[2019-09-15] MEDS ORDERED: ONDANSETRON 4MG/2ML VIAL (J2405) As Ordered ONE ×2 (08:40→11:51)
[2019-09-15] MEDS ORDERED: oxyCODONE 5MG TAB As Ordered ONE (11:52)
[2019-09-15] MEDS: fentaNYL 100 MCG/2 ML INJECTION (J3010) IV PRN ×2 (11:55→12:05)
[2019-09-15] MEDS ORDERED: LR 1,000 ML IV SCH ×2 (12:00)
[2019-09-15] MEDS ORDERED: ACETAMINOPHEN *IV* 1,000 MG IV ONE ×2 (12:00)
[2019-09-15] MEDS ORDERED: oxyCODONE 5MG TAB PO PRN (12:00)
[2019-09-15] MEDS ORDERED: ONDANSETRON 4MG/2ML VIAL (J2405) IV PRN (12:00)
[2019-09-15 13:21] VITALS: BP 119/85
--- NOTE | 2019-09-16 13:22 | RO ---
DATE OF PROCEDURE: 09/15/2019 PREOPERATIVE DIAGNOSIS: Thickened endometrial lining, postmenopausal. POSTOPERATIVE DIAGNOSIS: Thickened endometrial lining, postmenopausal. PROCEDURE: Hysteroscopy, dilation and curettage (D and C). SURGEON: Evgeny Boykin MD EMULSION OPERATOR: ANESTHESIA: General endotracheal. ESTIMATED BLOOD LOSS: 10 mL. URINE OUTPUT: 50 mL. FINDINGS: Normal appearing endometrial cavity. Normal tubal ostium. OPERATIVE SUMMARY: Patient taken to the operating room where general endotracheal anesthesia was induced. She was prepped, draped in sterile fashion in the dorsal lithotomy position. Speculum was placed. Bladder was emptied with a catheter, and the anterior lip of the cervix was grasped with a tenaculum. The cervix was dilated with tapered dilators. A diagnostic hysteroscope using normal saline as the distention media was placed through the internal os. Visualization of the endometrial cavity revealed the findings noted above. Sharp curettage was performed. All instruments were removed. Sponge and instruments were correct.
== END 2019-09-15 13:25 | disposition home or self-care (01) ==
LOC: M SDC 07:18
PROVIDERS: ATTEND Specialist
DX: N85.00 Endometrial hyperplasia, unspecified (principal); K21.9 Gastro-esophageal reflux disease without esophagitis; F41.9 Anxiety disorder, unspecified; F32.9 Major depressive disorder, single episode, unspecified; Z87.891 Personal history of nicotine dependence; Z79.899 Other long term (current) drug therapy
CPT/HCPCS: 36415; 58558; 85027; 88305; J0131; J1100; J2405; J3010

== ENCOUNTER → 2020-03-17 | Outpatient (CLI) | payer MEDICARE, OTHER ==
[~2020-03-17] MED LIST changes: -LIDOCAINE 1% MDV 20ML VIAL SQ PRN; -LR 1,000 ML IV ONE; -MECL-68 PO; +MECL1TAB31 PO; -PROPOFOL 200 MG/20 ML VIAL As Ordered ONE
== END ==
LOC: M LABSMTC 13:42
PROVIDERS: ATTEND Family Medicine
DX: Z11.59 Encounter for screening for other viral diseases (principal)
CPT/HCPCS: C9803; U0003

== ENCOUNTER → 2020-05-04 | Outpatient (CLI) | payer MEDICARE, OTHER ==
--- NOTE | 2020-05-23 17:03 | REPMRS ---
Patient History Patient is postmenopausal. Family history of breast cancer at age 50 in sister, ovarian cancer under age 50 in sister, ovarian cancer at age 88 in paternal aunt. Digital Woman Screen Mammo: May 04, 2020 - Exam #: [id number] Bilateral CC and MLO view(s) were taken. Technologist: Aniyah Alberto Technologist Prior study comparison: April 27, 2019, bilateral digital mammo screening bilat performed at [facility]. April 15, 2018, bilateral digital mammo screening bilat performed at [facility]. September 11, 2016, digital woman screen mammo, performed at [facility] [place] and [facility]. FINDINGS: There are scattered fibroglandular densities. The Volpara volumetric breast density category is:B. There has been no change in the appearance of the mammogram from the prior studies. There is a mild amount of scattered fibroglandular density which is fairly symmetric. There is no interval development of dominant mass, architectural distortion, or grouped microcalcification suggestive of malignancy. 3-D tomosynthesis shows no additional findings. Report was delayed due to a protracted computer network disruption experienced by this facility. Assessment: BI-RADS/ACR category 1 mammogram. Negative Mammogram. Recommendation Routine screening mammogram of both breasts in 1 year (for women over age 40). This patient's Lifetime Breast Cancer Risk is estimated at 7.0 %. This mammogram was interpreted with the aid of an FDA-approved computer-aided dectection system. Electronically Signed By: Mohan Hale MD 05/23/20 [id number]
--- NOTE | 2020-06-15 15:43 | DEXA ---
AP SPINE L1 - L4 0.988 -1.7 0.1 LT FEMUR TOTAL 0.881 -1.0 0.7 LT NECK 0.728 -2.2 -0.3 RT FEMUR TOTAL 0.959 -0.4 1.3 RT NECK 0.748 -2.1 -0.2 TOTAL BODY TOTAL OTHER COMMENTS: There is low bone density of the spine and hips. The density of the spine is decreased 2.4% since the initial exam on 09/10/2003. The decreased 2.2% since the most recent exam on 09/11/2016. The density of the left hip has decreased 9.9% since the initial exam on 09/10/2003. The density of the left hip has decreased 1.8% since the most recent exam on 09/11/2016. The density of the right hip has decreased 7.1% since the initial exam on 09/10/2003. The density of the right hip has decreased 2.8% since the most recent exam on 09/11/2016. FOLLOW-UP: Recommendation for the next bone density exam: 2 years. JARRET
== END ==
LOC: M WHC 15:52
PROVIDERS: ATTEND Internal Medicine
DX: Z12.31 Encounter for screening mammogram for malignant neoplasm of breast (principal); Z78.0 Asymptomatic menopausal state; Z80.3 Family history of malignant neoplasm of breast; Z80.41 Family history of malignant neoplasm of ovary; M85.89 Other specified disorders of bone density and structure, multiple sites

== ENCOUNTER → 2021-03-06 | Outpatient (REF) | payer MEDICARE, OTHER | LOC: M LAB REF 11:23 | PROVIDERS: ATTEND Internal Medicine | DX: Z20.820 Contact with and (suspected) exposure to varicella (principal) ==

== ENCOUNTER → 2021-07-24 | Outpatient (CLI) | payer MEDICARE, OTHER ==
--- NOTE | 2021-07-24 15:03 | REP ---
INDICATION: FOLLOW-UP CYST OF LEFT BREAST.Nodule, right breast. Indeterminate calcifications, right breast. COMPARISON: Screening mammogram, 03/15/2020 and 06/14/2021, left breast ultrasound, 03/31/2020 and bilateral breast ultrasound, same day. TECHNIQUE: 2D focal compression, with magnification, of the right breast in the CC and MLO orientations were obtained. Targeted ultrasound images of both breasts were obtained. FINDINGS: The Volpara volumetric breast density pattern is b, there are scattered areas of fibroglandular density.. The clustered calcifications in the right breast are benign round calcifications. Right breast ultrasound: 6 o'clock, 6 cm from the nipple, 5 x 4 x 3 mm, complicated cyst. 8 o'clock, 10 cm from the nipple, 9 x 8 x 7 mm, oval, parallel, circumscribed, heterogeneous mass, with a combined pattern of posterior features. Shear wave and strain elastography are consistent with benignity. Left breast ultrasound: 12 o'clock, 5 x 4 x 3 mm, complicated cyst. Shear wave in strain elastography are consistent with benignity. IMPRESSION: BIRADS/ACR 2: Benign finding. This mammogram was interpreted with the aid of an FDA-approved computer-aided detection system. The patient letter being requested is M2. RECOMMENDATION: Repeat screening mammography recommended 1 year (for women over 40). <Electronically signed by Kyle Calle > 07/24/21 [id number]
--- NOTE | 2021-07-25 08:43 | REP ---
INDICATION: LUMP RIGHT BREAST LATERAL ASPECT. Also screening mammogram. COMPARISON: Screening, 04/27/2019 and 05/04/2020. TECHNIQUE: 2D and 3D cc and MLO views were obtained of both breasts. Targeted ultrasound evaluation of the right breast. FINDINGS: The Volpara volumetric breast density pattern is b, there are scattered areas of fibroglandular density. There is a radiopaque triangle marking the location of the palpable abnormality in the right breast. There is no mammographic correlate to the palpable abnormality in the right breast. The left breast has an unremarkable mammographic appearance. Right breast ultrasound: There are no sonographically identifiable cystic or solid masses in the right breast. IMPRESSION: BIRADS/ACR 1: Negative. This mammogram was interpreted with the aid of an FDA-approved computer-aided detection system. The patient letter being requested is M1. RECOMMENDATION: Repeat screening mammography recommended 1 year (for women over 40). <Electronically signed by Kyle Calle > 07/25/21 [id number]
== END ==
LOC: M WHC 09:28
PROVIDERS: ATTEND Internal Medicine
DX: N63.13 Unspecified lump in the right breast, lower outer quadrant (principal)
CPT/HCPCS: 76642; 77066; G0279

== ENCOUNTER → 2021-08-01 | Outpatient (REF) | payer MEDICARE, OTHER ==
[2021-08-01 18:11] LABS: FREE T3 2.3 PG/ML (2.2-4.0)
[2021-08-01 18:14] LABS: FOLATE 11.3 NG/ML
== END ==
LOC: M LAB REF 16:35
PROVIDERS: ATTEND Registered Nurse
DX: R53.83 Other fatigue (principal)

== ENCOUNTER → 2022-02-09 | Outpatient (CLI) | payer MEDICARE, OTHER | LOC: M WUC 09:47 | PROVIDERS: ATTEND Registered Nurse | DX: M25.761 Osteophyte, right knee (principal); M25.561 Pain in right knee ==

== ENCOUNTER → 2022-02-27 | Outpatient (REF) | payer MEDICARE, OTHER | LOC: M LAB REF 12:15 | PROVIDERS: ATTEND Internal Medicine | DX: R53.83 Other fatigue (principal); L65.9 Nonscarring hair loss, unspecified ==

== ENCOUNTER → 2022-04-23 | Outpatient (CLI) | payer MEDICARE, OTHER ==
[~2022-04-23] MED LIST changes: +CHOL50002 PO; +PROB250C PO
== END ==
LOC: M LABSMTC 11:10
PROVIDERS: ATTEND Anesthesiology
DX: Z11.52 Encounter for screening for COVID-19 (principal)

== ENCOUNTER 2022-04-27 08:28 | Day surgery (SDC) | payer MEDICARE, OTHER ==
[~2022-04-27] VITALS: Ht 162.6 cm; Wt 80.3 kg
[~2022-04-27 08:28] MED LIST changes: +NS 1,000 ML IV ONE
[2022-04-27] MEDS ORDERED: LIDOCAINE 2% 100MG/5ML SDV (FOR ANES.) As Ordered ONE (10:28)
[2022-04-27] MEDS ORDERED: propofoL 200 MG/20 ML VIAL As Ordered ONE (10:28)
[2022-04-27 11:17] VITALS: BP 141/63
== END 2022-04-27 11:21 | disposition home or self-care (01) ==
LOC: M OPP 08:28
PROVIDERS: ATTEND Internal Medicine Gastroenterology
DX: Z12.11 Encounter for screening for malignant neoplasm of colon (principal); Z86.010 Personal history of colon polyps; K63.5 Polyp of colon; K57.30 Diverticulosis of large intestine without perforation or abscess without bleeding; K64.8 Other hemorrhoids; K21.00 Gastro-esophageal reflux disease with esophagitis, without bleeding; E78.00 Pure hypercholesterolemia, unspecified; F41.9 Anxiety disorder, unspecified; F32.9 Major depressive disorder, single episode, unspecified; M85.80 Other specified disorders of bone density and structure, unspecified site; Z79.899 Other long term (current) drug therapy; Z80.3 Family history of malignant neoplasm of breast

== ENCOUNTER → 2022-08-08 | Outpatient (CLI) | payer MEDICARE, OTHER ==
[~2022-08-08] MED LIST changes: -NS 1,000 ML IV ONE
== END ==
LOC: M WHC 13:24
PROVIDERS: ATTEND Internal Medicine
DX: Z12.31 Encounter for screening mammogram for malignant neoplasm of breast (principal); M81.0 Age-related osteoporosis without current pathological fracture

== ENCOUNTER → 2023-06-20 | Outpatient (REF) | payer MEDICARE, OTHER ==
[~2023-06-20] MED LIST changes: +MECL-209 PO; -MECL1TAB31 PO
[2023-06-20 13:20] LABS: FREE T3 3.3 PG/ML (2.3-4.2)
== END ==
LOC: M LAB REF 11:46
PROVIDERS: ATTEND Physician Assistant Medical
DX: R53.83 Other fatigue (principal)

== ENCOUNTER → 2023-08-09 | Outpatient (CLI) | payer MEDICARE, OTHER | LOC: M WHC 10:36 | PROVIDERS: ATTEND Physician Assistant Medical | DX: Z12.31 Encounter for screening mammogram for malignant neoplasm of breast (principal) ==

== ENCOUNTER 2024-06-25 22:32 | Inpatient (IN) | payer MEDICARE, OTHER ==
[~2024-06-25] VITALS: Ht 162.6 cm; Wt 75.0 kg
[2024-06-25] MEDS: ONDANSETRON 4MG 2ML VIAL IV ONE (23:51)
[2024-06-25] MEDS: MORPHINE 4 MG/ML 1ML VIAL IV PRN (23:52)
[2024-06-26] MEDS: PERCOCET 5MG/325MG TAB PO ONE (02:25)
[2024-06-26] MEDS ORDERED: CYCLOBENZAPRINE 5MG TABLET PO PRN (03:55)
[2024-06-26 04:33] LABS: BASO % 0.3 % (0.0-1.0); EOS # 0.1 10^3/uL (0.0-0.5); HEMATOCRIT 39.3 % (36.0-47.0); HEMOGLOBIN 12.8 g/dl (12.0-15.5); LYMPH # 2.1 10^3/uL (1.5-5.0); LYMPH % 20.9 % (24.0-44.0); MEAN CORPUSCULAR HEMOGLOBIN 28.7 pg (27.0-33.0); MEAN CORPUSCULAR HGB CONC 32.6 g/dl (32.0-36.5); MEAN CORPUSCULAR VOLUME 88.1 fl (80.0-96.0); MONO # 0.7 10^3/uL (0.0-0.8); MONO % 6.6 % (2.0-8.0); NEUTROPHILS # 7.2 10^3/uL (1.5-8.5); NEUTROPHILS % 70.9 % (36.0-66.0); PLATELET COUNT, AUTOMATED 198 10^3/uL (150-450); RED BLOOD COUNT 4.46 10^6/uL (4.00-5.40); WHITE BLOOD COUNT 10.1 10^3/uL (4.0-10.0)
[2024-06-26 04:57] LABS: CALCIUM LEVEL 8.6 MG/DL (8.3-10.6); CREATININE FOR GFR 0.97 MG/DL (0.55-1.30); GLOMERULAR FILTRATION RATE 59.1 (>39); POTASSIUM SERUM 4.1 MMOL/L (3.5-5.1)
[2024-06-26 05:56] LABS: INR 1.06; PROTHROMBIN TIME 13.5 SECONDS (12.5-14.5)
[2024-06-26] MEDS ORDERED: VITA-243 PO (06:53)
[2024-06-26] MEDS ORDERED: FISH100015 PO (06:53)
[2024-06-26] MEDS ORDERED: [UNRECOGNIZED DRUG - CODE] PO (06:53)
[2024-06-26] MEDS ORDERED: CYAN500T20 PO (06:53)
[2024-06-26] MEDS ORDERED: D31000CA4 PO (06:53)
[2024-06-26] MEDS ORDERED: HOME MED LIST COMPLETE! XX SCH (06:55)
[2024-06-26] MEDS: ACETAMINOPHEN 500 MG TAB PO SCH (08:42)
[2024-06-26] MEDS ORDERED: ENOXAPARIN 40MG/0.4ML SYRINGE (J1650 PER 10MG) SC SCH (09:00)
[2024-06-26] MEDS ORDERED: ENOXAPARIN 40MG/0.4ML SYRINGE (J1650 PER 10MG) SC ONE (11:20)
[2024-06-26] MEDS: CYANOCOBALAMIN 500 MCG TAB PO SCH (12:31)
[2024-06-26] MEDS: ASCORBIC ACID 500 MG TAB PO SCH (12:32)
[2024-06-26] MEDS: oxyCODONE 5MG TAB PO PRN (12:37)
[2024-06-26] MEDS ORDERED: propofoL 200 MG/20 ML VIAL As Ordered ONE (17:45)
[2024-06-26] MEDS ORDERED: ROCURONIUM BROMIDE 50MG/5ML VIAL As Ordered ONE (17:45)
[2024-06-26] MEDS ORDERED: MIDAZOLAM INJ 2MG/2ML VIAL As Ordered ONE (17:45)
[2024-06-26] MEDS ORDERED: LIDOCAINE 2% 100MG/5ML SDV (FOR ANES.) As Ordered ONE (17:45)
[2024-06-26] MEDS ORDERED: fentaNYL 100 MCG/2 ML INJECTION As Ordered ONE (17:46)
[2024-06-26] MEDS ORDERED: ePHEDrine SULFATE 25 MG/5 ML(5MG/ML) SYRINGE As Ordered ONE (18:01)
[2024-06-26] MEDS ORDERED: PHENYLephrine 500MCG 5ML (100MCG/ML) SYRINGE As Ordered ONE (18:02)
[2024-06-26] MEDS ORDERED: ONDANSETRON 4MG 2ML VIAL As Ordered ONE (18:03)
[2024-06-26] MEDS: ceFAZolin 2 GM/D5W 50 ML IV BAG As Ordered ONE (18:03)
[2024-06-26] MEDS ORDERED: GLYCOPYRROLATE INJ 0.2 MG/ML 2 ML VIAL As Ordered ONE (18:06)
[2024-06-26] MEDS ORDERED: ACETAMINOPHEN 1000MG 100ML IV BAG As Ordered ONE (18:07)
[2024-06-26] MEDS ORDERED: fentaNYL 100 MCG/2 ML INJECTION IV PRN (19:30)
[2024-06-26] MEDS ORDERED: ONDANSETRON 4MG 2ML VIAL IV PRN (19:30)
[2024-06-26] MEDS ORDERED: HYDROMORPHONE HCL 0.5 MG/ 0.5 ML SYRINGE IV PRN (19:30)
[2024-06-26] MEDS ORDERED: oxyCODONE 5MG TAB PO PRN (19:30)
[2024-06-26 20:12] VITALS: BP 141/72; TEMP 97.2; O2SAT 93
[2024-06-26] MEDS: LR 1,000 ML IV SCH (20:12)
[2024-06-26 20:30] VITALS: BP 136/74; TEMP 97; O2SAT 96
[2024-06-26] MEDS: MORPHINE 2 MG/ML 1ML VIAL IV PRN (20:30)
[2024-06-26 21:00] VITALS: BP 119/66; TEMP 97.2; O2SAT 95
[2024-06-26 22:00] VITALS: BP 125/79; TEMP 96.8; O2SAT 96
[2024-06-26 23:00] VITALS: BP 107/64; TEMP 97.3; O2SAT 96
[2024-06-27] VITALS: BP 111/67; TEMP 97.2; O2SAT 92
[2024-06-27] MEDS: ceFAZolin SOD 2 GM in IV 1 EA IV SCH (01:40)
[2024-06-27 04:00] VITALS: BP 112/67; TEMP 97; O2SAT 96
[2024-06-27 08:00] VITALS: BP 114/67; TEMP 97.5; O2SAT 94
[2024-06-27] MEDS ORDERED: oxyCODONE 5MG TAB PO PRN ×2 (08:40)
[2024-06-27] MEDS ORDERED: KETOROLAC 30 MG/ML 1ML VIAL IV PRN (08:40)
[2024-06-27 08:50] LABS: HEMATOCRIT 40.3 % (36.0-47.0); HEMOGLOBIN 12.8 g/dl (12.0-15.5); MEAN CORPUSCULAR HEMOGLOBIN 28.2 pg (27.0-33.0); MEAN CORPUSCULAR HGB CONC 31.8 g/dl (32.0-36.5); MEAN CORPUSCULAR VOLUME 88.8 fl (80.0-96.0); PLATELET COUNT, AUTOMATED 186 10^3/uL (150-450); RED BLOOD COUNT 4.54 10^6/uL (4.00-5.40); WHITE BLOOD COUNT 13.6 10^3/uL (4.0-10.0)
[2024-06-27] MEDS: ACETAMINOPHEN 500 MG TAB PO SCH (08:54)
[2024-06-27] MEDS ORDERED: CitaloPRAM (CeleXA) 20 MG TAB PO SCH (09:00)
[2024-06-27] MEDS: CYCLOBENZAPRINE 5MG TABLET PO SCH (09:14)
[2024-06-27] MEDS: GABAPENTIN 100 MG CAP PO SCH (09:15)
[2024-06-27] MEDS: KETOROLAC 30 MG/ML 1ML VIAL IV SCH (09:44)
[2024-06-27 12:00] VITALS: BP 94/56; TEMP 97.5; O2SAT 94
[2024-06-27] MEDS: ENOXAPARIN 40MG/0.4ML SYRINGE (J1650 PER 10MG) SC SCH (12:32)
[2024-06-27] MEDS: CitaloPRAM (CeleXA) 20 MG TAB PO SCH (12:33)
[2024-06-27] MEDS: VITAMIN D 1,000 INTERNATIONAL UNITS TABLET PO SCH (12:33)
[2024-06-27 16:00] VITALS: BP 93/55; TEMP 97.5; O2SAT 94
[2024-06-28 04:00] VITALS: BP 101/53; TEMP 97.5; O2SAT 95
[2024-06-28 07:20] LABS: BASO % 0.5 % (0.0-1.0); EOS # 0.3 10^3/uL (0.0-0.5); HEMATOCRIT 33.3 % (36.0-47.0); HEMOGLOBIN 10.9 g/dl (12.0-15.5); LYMPH # 2.5 10^3/uL (1.5-5.0); MEAN CORPUSCULAR HEMOGLOBIN 28.9 pg (27.0-33.0); MEAN CORPUSCULAR HGB CONC 32.7 g/dl (32.0-36.5); MEAN CORPUSCULAR VOLUME 88.3 fl (80.0-96.0); MONO # 0.9 10^3/uL (0.0-0.8); MONO % 10.4 % (2.0-8.0); NEUTROPHILS # 4.5 10^3/uL (1.5-8.5); NEUTROPHILS % 54.7 % (36.0-66.0); PLATELET COUNT, AUTOMATED 141 10^3/uL (150-450); RED BLOOD COUNT 3.77 10^6/uL (4.00-5.40); WHITE BLOOD COUNT 8.2 10^3/uL (4.0-10.0)
[2024-06-28 07:47] LABS: C REACTIVE PROTEIN QUANTITATIV 10.6 MG/DL (<1.0)
[2024-06-28 07:48] LABS: CREATININE FOR GFR 1.01 MG/DL (0.55-1.30); GLOMERULAR FILTRATION RATE 56.4 (>39); POTASSIUM SERUM 3.8 MMOL/L (3.5-5.1)
[2024-06-28 07:55] LABS: PROCALCITONIN 0.16 ng/ml
[2024-06-28 08:00] VITALS: BP 103/55; TEMP 97.2; O2SAT 92
[2024-06-28 12:00] VITALS: BP 99/55; TEMP 97.3; O2SAT 96
[2024-06-28 16:00] VITALS: BP 114/70; TEMP 97.3; O2SAT 96
[2024-06-28] MEDS ORDERED: FLEET ENEMA PR PRN (18:15)
[2024-06-28] MEDS: SENNA 8.6 MG TAB (SENOKOT) PO ONE (18:45)
[2024-06-28] MEDS: LACTULOSE 20GM/30ML SYRUP UDC PO ONE (18:45)
[2024-06-28 20:14] VITALS: BP 106/56; TEMP 97.7
[2024-06-28] MEDS: MIRALAX *UNIT DOSE* 17GM PACKET PO SCH (21:00)
[2024-06-28] MEDS: MAALOX 30 ML SUSP *UDC PO PRN (21:29)
[2024-06-29 05:04] VITALS: BP 115/70; TEMP 97.5; O2SAT 96
[2024-06-29 08:00] VITALS: BP 103/82; TEMP 97.5; O2SAT 96
[2024-06-29 09:29] LABS: BASO % 0.2 % (0.0-1.0); EOS # 0.2 10^3/uL (0.0-0.5); EOS % 2.6 % (0.0-3.0); HEMATOCRIT 36.4 % (36.0-47.0); HEMOGLOBIN 11.9 g/dl (12.0-15.5); LYMPH # 1.6 10^3/uL (1.5-5.0); LYMPH % 18.2 % (24.0-44.0); MEAN CORPUSCULAR HEMOGLOBIN 28.6 pg (27.0-33.0); MEAN CORPUSCULAR HGB CONC 32.7 g/dl (32.0-36.5); MEAN CORPUSCULAR VOLUME 87.5 fl (80.0-96.0); MONO # 0.6 10^3/uL (0.0-0.8); MONO % 7.3 % (2.0-8.0); NEUTROPHILS # 6.1 10^3/uL (1.5-8.5); NEUTROPHILS % 71.5 % (36.0-66.0); PLATELET COUNT, AUTOMATED 172 10^3/uL (150-450); RED BLOOD COUNT 4.16 10^6/uL (4.00-5.40); WHITE BLOOD COUNT 8.6 10^3/uL (4.0-10.0)
[2024-06-29 09:58] LABS: BLOOD UREA NITROGEN 21 MG/DL (9-23); CALCIUM LEVEL 8.4 MG/DL (8.3-10.6); CARBON DIOXIDE LEVEL 26 MMOL/L (20-31); CHLORIDE LEVEL 105 MMOL/L (98-107); CREATININE FOR GFR 0.89 MG/DL (0.55-1.30); GLOMERULAR FILTRATION RATE > 60.0 (>39); GLUCOSE, FASTING 87 MG/DL (74-106); POTASSIUM SERUM 4.9 MMOL/L (3.5-5.1); SODIUM LEVEL 135 MMOL/L (136-145)
[2024-06-29 12:00] VITALS: BP 93/60; TEMP 97.3; O2SAT 93
[2024-06-29 16:00] VITALS: BP 99/61; TEMP 97.5; O2SAT 96
[2024-06-29 20:42] VITALS: BP 100/62; TEMP 97.4; O2SAT 96
[2024-06-29] MEDS: SENOKOT S TAB PO PRN (21:07)
[2024-06-30] VITALS (7 sets, daily range): BP systolic 102–116; BP diastolic 55–64; TEMP 97.3–97.9; O2SAT 95–97
[2024-06-30] MEDS: BISACODYL 10MG SUPP PR PRN (12:52)
[2024-06-30] MEDS ORDERED: oxyCODONE 10 MG CR TAB PO SCH (14:00)
[2024-06-30] MEDS ORDERED: NALOXONE INJ 0.4MG/1ML VIAL IV PRN (14:00)
[2024-06-30] MEDS ORDERED: oxyCODONE 5MG TAB PO PRN (14:05)
[2024-06-30] MEDS ORDERED: PILL CUTTER 1 EACH XX PRN (14:25)
[2024-06-30] MEDS: oxyCODONE 5MG TAB PO SCH (14:39)
[2024-06-30 15:04] LABS: BLOOD UREA NITROGEN 27 MG/DL (9-23); CALCIUM LEVEL 8.4 MG/DL (8.3-10.6); CARBON DIOXIDE LEVEL 27 MMOL/L (20-31); CHLORIDE LEVEL 103 MMOL/L (98-107); CREATININE FOR GFR 0.93 MG/DL (0.55-1.30); GLOMERULAR FILTRATION RATE > 60.0 (>39); GLUCOSE, FASTING 96 MG/DL (74-106); POTASSIUM SERUM 4.9 MMOL/L (3.5-5.1); SODIUM LEVEL 133 MMOL/L (136-145)
[2024-06-30] MEDS: oxyCODONE 10 MG CR TAB PO SCH (20:35)
[2024-07-01 04:05] VITALS: BP 110/62; TEMP 97.5; O2SAT 94
[2024-07-01 07:56] VITALS: BP 111/62; TEMP 97.3; O2SAT 95
[2024-07-01] MEDS ORDERED: ACET-683 PO (11:43)
[2024-07-01] MEDS ORDERED: OXYC-517 PO (11:43)
[2024-07-01] MEDS ORDERED: MIRA3350 PO (11:45)
[2024-07-01] MEDS ORDERED: MOM30SS2 PO (11:45)
[2024-07-01] MEDS ORDERED: SENN-52 PO (11:45)
[2024-07-01] MEDS ORDERED: DULC10SU2 PR (11:45)
[2024-07-01 12:00] VITALS: BP 106/56; TEMP 97.5; O2SAT 96
[2024-07-01] MEDS ORDERED: ASPI-527 PO (12:14)
== END 2024-07-01 13:50 | disposition home health service (06) | DRG 494 ==
LOC: EDBD 22:32 → M ED 22:32 → M ED INP 22:33 → UNDOADMOB 22:34 → M ED INP 22:34 → M MSPAV 06-26 20:12 → INTOOBSV 06-27 14:47 → OBSVTOIN 06-27 14:47 → UNDODISIN 07-01 13:50
PROVIDERS: ADMIT Internal Medicine; ATTEND General Practice
PROC: 0QUH0KZ Supplement Left Tibia with Nonautologous Tissue Substitute, Open Approach (ICD-10-PCS; 2024-06-26)
PROC: 0QSH04Z Reposition Left Tibia with Internal Fixation Device, Open Approach (ICD-10-PCS; principal; 2024-06-26 13:30)
DX: S82.142A Displaced bicondylar fracture of left tibia, initial encounter for closed fracture (principal); F32.A Depression, unspecified; E55.9 Vitamin D deficiency, unspecified; Z79.899 Other long term (current) drug therapy; W18.09XA Striking against other object with subsequent fall, initial encounter; Y92.018 Other place in single-family (private) house as the place of occurrence of the external cause; Y93.89 Activity, other specified; Y99.8 Other external cause status

== ENCOUNTER → 2024-07-07 | Outpatient (CLI) | payer MEDICARE, OTHER ==
[~2024-07-07] MED LIST changes: +ACET-683 PO; +ASPI-527 PO; +CYAN500T20 PO; +D31000CA4 PO; +DULC10SU2 PR; +FISH100015 PO; +MIRA3350 PO; +MOM30SS2 PO; +OXYC-517 PO; +SENN-52 PO; +VITA-243 PO; +[UNRECOGNIZED DRUG - CODE] PO
== END ==
LOC: M SOG 11:27
PROVIDERS: ATTEND Physician Assistant
DX: S82.122A Displaced fracture of lateral condyle of left tibia, initial encounter for closed fracture (principal); W18.30XA Fall on same level, unspecified, initial encounter; Y92.009 Unspecified place in unspecified non-institutional (private) residence as the place of occurrence of the external cause

== ENCOUNTER → 2024-08-12 | Outpatient (CLI) | payer MEDICARE, OTHER | LOC: M SOG 07:56 | PROVIDERS: ATTEND Physician Assistant | DX: S82.122A Displaced fracture of lateral condyle of left tibia, initial encounter for closed fracture (principal); W18.30XA Fall on same level, unspecified, initial encounter; Y92.009 Unspecified place in unspecified non-institutional (private) residence as the place of occurrence of the external cause ==

== ENCOUNTER → 2025-01-13 | Outpatient (CLI) | payer MEDICARE, OTHER ==
[~2025-01-13] MED LIST changes: -FISH100015 PO; +FISH100019 PO
== END ==
LOC: M SOG 08:26
PROVIDERS: ATTEND Orthopaedic Surgery
DX: S82.122A Displaced fracture of lateral condyle of left tibia, initial encounter for closed fracture (principal); W18.30XA Fall on same level, unspecified, initial encounter; Y92.009 Unspecified place in unspecified non-institutional (private) residence as the place of occurrence of the external cause

== ENCOUNTER → 2025-04-13 | Outpatient (CLI) | payer MEDICARE, OTHER ==
[~2025-04-13] MED LIST changes: +PEPC1TAB5 PO; +SUCR1ORA PO
== END ==
LOC: M RAD 13:28
PROVIDERS: ATTEND Internal Medicine
DX: M25.562 Pain in left knee (principal)

== ENCOUNTER 2025-05-18 10:09 | Day surgery (SDC) | payer MEDICARE, OTHER ==
[~2025-05-18] VITALS: Ht 162.6 cm; Wt 76.4 kg
[~2025-05-18 10:09] MED LIST changes: +ASPI325T57 PO; +CALC1TAB42 PO; +CURC500C PO; +FAMO1TAB11 PO; +LIDOCAINE 2% 100 MG/5 ML SDV (FOR ANES.) As Ordered ONE; +OSTETAB2 PO; +ULTR5TAB PO; +[UNRECOGNIZED DRUG - OTHER]
[2025-05-18] MEDS ORDERED: GLYCOPYRROLATE INJ 0.2 MG/ML 2 ML VIAL As Ordered ONE (11:17)
[2025-05-18 11:52] VITALS: BP 125/60; TEMP 97.5; O2SAT 97
== END 2025-05-18 11:59 | disposition home or self-care (01) ==
LOC: M OPP 10:09
PROVIDERS: ATTEND Surgery
DX: K44.9 Diaphragmatic hernia without obstruction or gangrene (principal); K25.9 Gastric ulcer, unspecified as acute or chronic, without hemorrhage or perforation; R10.13 Epigastric pain; Z91.048 Other nonmedicinal substance allergy status; Z79.899 Other long term (current) drug therapy
CPT/HCPCS: 43235; J1596

== ENCOUNTER → 2025-07-07 | Outpatient (REF) | payer MEDICARE, OTHER ==
[~2025-07-07] MED LIST changes: -LIDOCAINE 2% 100 MG/5 ML SDV (FOR ANES.) As Ordered ONE
[2025-07-07 17:19] LABS: BASO # 0.1 10^3/uL (0.0-0.2); BASO % 0.8 % (0.0-1.0); EOS # 0.3 10^3/uL (0.0-0.5); EOS % 3.5 % (0.0-3.0); LYMPH # 3.1 10^3/uL (1.5-5.0); LYMPH % 39.0 % (24.0-44.0); MONO # 0.7 10^3/uL (0.0-0.8); MONO % 8.2 % (2.0-8.0); NEUTROPHILS # 3.8 10^3/uL (1.5-8.5); NEUTROPHILS % 48.1 % (36.0-66.0); PLATELET COUNT, AUTOMATED 285 10^3/uL (150-450)
[2025-07-07 17:25] LABS: INR 0.99
[2025-07-07 17:27] LABS: ALT/SGPT 13.0 U/L (7.0-40); AST/SGOT 19.0 U/L (<34); CALCIUM LEVEL 8.5 MG/DL (8.3-10.6); CARBON DIOXIDE LEVEL 28.0 MMOL/L (20-31); CHLORIDE LEVEL 107.0 MMOL/L (98-107); CREATININE FOR GFR 0.92 MG/DL (0.55-1.30); GLOMERULAR FILTRATION RATE 63.3 (>39); MAGNESIUM LEVEL 1.9 MG/DL (1.8-2.4); POTASSIUM SERUM 4.4 MMOL/L (3.5-5.1); SODIUM LEVEL 145.0 MMOL/L (136-145)
== END ==
LOC: M SFHCLERA 15:08
PROVIDERS: ATTEND Internal Medicine
DX: Z01.818 Encounter for other preprocedural examination (principal); Z79.899 Other long term (current) drug therapy

== ENCOUNTER → 2025-07-23 | Outpatient (CLI) | payer MEDICARE, OTHER ==
[~2025-07-23] MED LIST changes: +MAGN100T PO; +SIME1CAP4 PO; +TRIPCAP5 PO; +VITA100093 PO; +[UNRECOGNIZED DRUG - CODE] PO; +[UNRECOGNIZED DRUG - CODE] PO; +[UNRECOGNIZED DRUG - OTHER] PO
== END ==
LOC: M RAD 08:23
PROVIDERS: ATTEND Surgery
DX: R10.11 Right upper quadrant pain (principal)
CPT/HCPCS: 78227; A9537

== ENCOUNTER 2025-07-27 06:02 | Day surgery (SDC) | payer MEDICARE, OTHER ==
[~2025-07-27] VITALS: Ht 162.6 cm; Wt 77.2 kg
[~2025-07-27 06:02] MED LIST changes: -SIME1CAP4 PO
[2025-07-27] MEDS ORDERED: ROCURONIUM BROMIDE 50MG/5ML VIAL As Ordered ONE (06:24)
[2025-07-27] MEDS ORDERED: dexAMETHasone 4 MG/ML 1 ML VIAL As Ordered ONE (06:24)
[2025-07-27] MEDS ORDERED: LIDOCAINE 2% 100 MG/5 ML SDV (FOR ANES.) As Ordered ONE (06:24)
[2025-07-27] MEDS ORDERED: GLYCOPYRROLATE INJ 0.2 MG/ML 2 ML VIAL As Ordered ONE (06:24)
[2025-07-27] MEDS ORDERED: ONDANSETRON 4MG/2ML VIAL As Ordered ONE (06:24)
[2025-07-27] MEDS ORDERED: MIDAZOLAM INJ 2 MG/2 ML VIAL As Ordered ONE (06:25)
[2025-07-27] MEDS ORDERED: SUGAMMADEX SODIUM 500 MG/5 ML VIAL As Ordered ONE (06:25)
[2025-07-27] MEDS ORDERED: ACETAMINOPHEN 1000MG/100ML IV BAG As Ordered ONE (06:26)
[2025-07-27] MEDS ORDERED: LR 1,000 ML IV SCH (07:05)
[2025-07-27] MEDS ORDERED: SCOPOLAMINE 1MG TRANSDERMAL PATCH TOP ONE (07:10)
[2025-07-27] MEDS: ceFAZolin SOD 2 GM IV ONCE IV ONE (07:30)
[2025-07-27] MEDS ORDERED: CALCIUM CHLORIDE 10% 1 GM/10 ML SYR As Ordered ONE (07:42)
[2025-07-27] MEDS ORDERED: ATROPINE SULF 0.4 MG/ML 1 ML VIAL As Ordered ONE (07:50)
[2025-07-27] MEDS: HEPARIN SOD 5000 UNITS/ML 1 ML VIAL/SYRINGE SQ ONE (08:00)
[2025-07-27] MEDS ORDERED: HYDROmorphone HCL 2 MG/ML 1 ML VIAL As Ordered ONE (08:35)
[2025-07-27] MEDS ORDERED: HYDROMORPHONE HCL 0.5 MG/0.5 ML SYRINGE IV PRN (11:00)
[2025-07-27] MEDS ORDERED: ONDANSETRON 4MG/2ML VIAL IV PRN (11:00)
[2025-07-27] MEDS ORDERED: SIME1CAP4 PO (11:21)
[2025-07-27] MEDS: KETOROLAC 30 MG/ML 1 ML VIAL IV ONE (11:24)
[2025-07-27 12:15] VITALS: BP 108/55; TEMP 97.9; O2SAT 97
== END 2025-07-27 12:32 | disposition home or self-care (01) ==
LOC: M SDC 06:02
PROVIDERS: ATTEND Surgery
DX: K44.9 Diaphragmatic hernia without obstruction or gangrene (principal); K21.9 Gastro-esophageal reflux disease without esophagitis; Z79.899 Other long term (current) drug therapy; Z87.891 Personal history of nicotine dependence
CPT/HCPCS: 43281; C1781; J0131; J0461; J0618; J0665; J0666; J0688; J1100; J1171; J1596; J1885; J2250; J2405; J2765; J3010

== ENCOUNTER 2025-08-08 14:13 | Emergency (ER) | payer MEDICARE, OTHER ==
[~2025-08-08] VITALS: Ht 160 cm; Wt 74.4 kg
[~2025-08-08 14:13] MED LIST changes: +SIME1CAP4 PO
[2025-08-08 14:16] VITALS: BP 152/74; TEMP 97.4; O2SAT 98
[2025-08-08 15:30] LABS: BASO # 0.0 10^3/uL (0.0-0.2); BASO % 0.4 % (0.0-1.0); EOS # 0.2 10^3/uL (0.0-0.5); EOS % 2.8 % (0.0-3.0); LYMPH # 2.5 10^3/uL (1.5-5.0); LYMPH % 34.7 % (24.0-44.0); MONO # 0.5 10^3/uL (0.0-0.8); MONO % 6.8 % (2.0-8.0); NEUTROPHILS # 3.9 10^3/uL (1.5-8.5); NEUTROPHILS % 55.2 % (36.0-66.0); PLATELET COUNT, AUTOMATED 334 10^3/uL (150-450)
[2025-08-08 15:53] LABS: ALT/SGPT 23.0 U/L (7.0-40); AST/SGOT 23.0 U/L (<34); CALCIUM LEVEL 9.1 MG/DL (8.3-10.6); CARBON DIOXIDE LEVEL 30.0 MMOL/L (20-31); CHLORIDE LEVEL 105.0 MMOL/L (98-107); CREATININE FOR GFR 0.86 MG/DL (0.55-1.30); GLOMERULAR FILTRATION RATE 68.7 (>39); POTASSIUM SERUM 4.6 MMOL/L (3.5-5.1); SODIUM LEVEL 142.0 MMOL/L (136-145)
== END 2025-08-08 19:01 | disposition home or self-care (01) ==
LOC: M ED 14:13
DX: R22.32 Localized swelling, mass and lump, left upper limb (principal); Z91.09 Other allergy status, other than to drugs and biological substances; Z79.899 Other long term (current) drug therapy

== ENCOUNTER → 2025-09-16 | Outpatient (REF) | payer MEDICARE, OTHER ==
[2025-09-16 19:35] LABS: BASO # 0.0 10^3/uL (0.0-0.2); BASO % 0.5 % (0.0-1.0); EOS # 0.1 10^3/uL (0.0-0.5); EOS % 1.3 % (0.0-3.0); LYMPH # 2.8 10^3/uL (1.5-5.0); LYMPH % 36.2 % (24.0-44.0); MONO # 0.6 10^3/uL (0.0-0.8); MONO % 7.0 % (2.0-8.0); NEUTROPHILS # 4.3 10^3/uL (1.5-8.5); NEUTROPHILS % 54.6 % (36.0-66.0); PLATELET COUNT, AUTOMATED 315 10^3/uL (150-450)
[2025-09-16 19:41] LABS: IRON (FE) 33.0 UG/DL (50-170); PERCENT SATURATION 9.1 % (13.2-45.0)
[2025-09-16 19:43] LABS: VITAMIN B12 LEVEL 506.0 PG/ML (211-911)
== END ==
LOC: M SFHCLERA 14:23
PROVIDERS: ATTEND Internal Medicine
DX: D64.9 Anemia, unspecified (principal)